=== PATIENT | male | born 1965 | race Caucasian/White ===

== ENCOUNTER 2020-07-29 15:11 | Emergency (ER) | payer OTHER ==
[~2020-07-29 15:11] MED LIST: BACTRIM DS TAB1 EACH PO; KEFLEX CAP 500500 MG PO
[2020-07-29 15:53] LABS: HEMOGLOBIN 15.5 gm/dl (14.0-17.5); RED BLOOD COUNT 5.59 M/UL (4.20-5.50)
[2020-07-29 16:16] LABS: BUN/CREATININE RATIO 20 (0-10)
[2020-07-29] MEDS ORDERED: ONDANSETRON ODT4 MG SL (18:13)
[2020-07-29] MEDS ORDERED: FLOMAX 0.4 MG0.4 MG PO (18:13)
[2020-07-29] MEDS ORDERED: HYDROCODON-ACE1 EAC4 PO (18:21)
[2020-07-29] MEDS ORDERED: TORADOL 10 MG T10 MG PO (18:24)
== END 2020-07-29 18:32 | disposition home or self-care (01) ==
LOC: ER1 15:11
PROVIDERS: Physician Assistant
DX: N13.2 Hydronephrosis with renal and ureteral calculous obstruction (principal); K80.80 Other cholelithiasis without obstruction; K76.0 Fatty (change of) liver, not elsewhere classified; J43.9 Emphysema, unspecified; K40.90 Unilateral inguinal hernia, without obstruction or gangrene, not specified as recurrent; I10 Essential (primary) hypertension; E11.9 Type 2 diabetes mellitus without complications
CPT/HCPCS: 80053; 81001; 83690; 85025; 96374; 96375; 99283; J7030; Q9967

== ENCOUNTER 2020-08-08 19:09 | Emergency (ER) | payer OTHER ==
[~2020-08-08 19:09] MED LIST changes: +FLOMAX 0.4 MG0.4 MG PO; +HYDROCODON-ACE1 EAC4 PO; +ONDANSETRON ODT4 MG SL; +TORADOL 10 MG T10 MG PO
[2020-08-08 21:36] LABS: HEMOGLOBIN 13.8 gm/dl (14.0-17.5); RED BLOOD COUNT 5.03 M/UL (4.20-5.50); WHITE BLOOD COUNT 12.1 K/UL (4.5-11.0)
[2020-08-09] MEDS ORDERED: ZOFRAN ODT 4 MG4 MG PO (00:44)
[2020-08-09] MEDS ORDERED: LODINE CAP 300300 MG PO (00:44)
[2020-08-09] MEDS ORDERED: FLOMAX 0.4 MG0.4 MG PO (00:44)
== END 2020-08-09 01:10 | disposition home or self-care (01) ==
LOC: ER1 19:09
PROVIDERS: Emergency Medicine
DX: N13.2 Hydronephrosis with renal and ureteral calculous obstruction (principal); Z87.442 Personal history of urinary calculi
CPT/HCPCS: 36415; 80053; 81001; 85025; 94760; 96374; 96375; 99284; J2270; J2405